=== PATIENT | male | born 1990 | race Asian ===

== ENCOUNTER 2020-02-24 13:34 | Emergency (ER) | payer OTHER, BC ==
[~2020-02-24] VITALS: Ht 167.6 cm; Wt 49.9 kg
[2020-02-24 14:05] VITALS: BP 114/69
[2020-02-24] MEDS ORDERED: TETANUS-DIPTH-ACEL PERTUSSIS 0.5ML SYR Tdap IM ONE (15:00)
== END 2020-02-24 15:38 | disposition home or self-care (01) ==
LOC: ER 13:34
DX: S01.01XA Laceration without foreign body of scalp, initial encounter (principal); V09.9XXA Pedestrian injured in unspecified transport accident, initial encounter; Y93.89 Activity, other specified; Y92.89 Other specified places as the place of occurrence of the external cause; Y99.8 Other external cause status
CPT/HCPCS: 12001; 90471; 90715